=== PATIENT | female | born 1985 | race Caucasian/White ===

== ENCOUNTER 2021-02-27 20:22 | Emergency (ER) | payer BC, SELFPAY ==
[2021-02-27] VITALS (11 sets, daily range): BP systolic 99–114; BP diastolic 59–80; PULSE 77–115; RESP 13–20; TEMP 35.8; O2SAT 100
[2021-02-27] MEDS: SODIUM CHLORIDE 0.9% IV 1,000 ML 999 ML IV CONT (20:44)
[2021-02-27] MEDS: PROCHLORPERAZINE EDISYLATE 10 MG/2 ML VIAL IV PUSH (20:45)
[2021-02-27 20:55] LABS: Basophils Absolute Auto 0.1 K/mm3 (0.0-0.1); Basophils Percent Auto 0.6 % (0.2-1.2); Eosinophils Absolute Auto 0.1 K/mm3 (0-0.3); Eosinophils Percent Auto 0.9 % (0-4.4); Hematocrit 42.1 % (37.0-47.0); Hemoglobin 13.7 g/dL (12.0-15.0); Immature Granulocyte Absolute 0.03 K/mm3 (0.00-0.031); Immature Granulocyte Percent A 0.3 % (0-0.5); Lymphocytes Absolute Auto 3.59 K/mm3 (0.9-3.2); Lymphocytes Percent Auto 39.7 % (18.3-44.2); Mean Corpuscular HGB Conc 32.5 g/dl (32-36); Mean Corpuscular Hemoglobin 25.4 pg (26-34); Mean Corpuscular Volume 78.1 fl (80-100); Mean Platelet Volume 10.6 fl (7.4-10.4); Monocytes Absolute Auto 0.6 K/mm3 (0.1-0.6); Monocytes Percent Auto 7.1 % (2.6-8.5); Neutrophils Absolute Auto 4.7 K/mm3 (1.3-6.7); Neutrophils Percent Auto 51.4 % (45.5-73.1); Platelet Count Result 181 k/mm3 (150-375); Red Blood Count 5.39 M/mm3 (4.2-5.4); Red Cell Distribution Width 12.6 % (11.5-14.5); White Blood Count 9.1 K/mm3 (4.5-10.0)
--- NOTE | 2021-02-27 21:00 | PC.NURSE ---
Patient rolling in bed, patients calls this nurse into room, states that she has anxiety and is becoming anxious. Patient reassured and updated on situation. ERP notified. Awaiting orders.
[2021-02-27 21:04] LABS: Ethanol 264 mg/dL (<10)
[2021-02-27 21:05] LABS: Alanine Aminotransferase 43 U/L (4-35); Albumin Level 4.4 g/dL (3.5-5.1); Alkaline Phosphatase 56 U/L (38-126); Anion Gap 13 mmol/L (8-16); Aspartate Amino Transferase 35 U/L (14-36); Bilirubin,Total 0.4 mg/dL (0.2-1.3); Blood Urea Nitrogen 13 mg/dL (7-17); Calcium 8.5 mg/dL (8.4-10.2); Carbon Dioxide 23 mmol/L (22-30); Chloride 109 mmol/L (98-107); Estimated Glomerular Filt Rate > 60; Glucose 115 mg/dL (65-110); Potassium 3.4 mmol/L (3.4-5.0); Sodium 145 mmol/L (137-145)
[2021-02-27 21:34] LABS: Add Urine Microscopic? YES; Appearance Urine Clear (Clear); Bilirubin Urine Negative (Negative); Blood Urine 1+ (Negative); Color Urine Straw (Yellow); Glucose Urine UA Negative (Negative); Ketones Urine Negative (Negative); Leukocyte Esterase Ur Negative LEU/UL (Negative); Nitrate Urine Negative (Negative); Protein Urine Negative (Negative); RBC Urine 0-2 /hpf (0-2); Specific Grav Ur 1.006 (1.001-1.035); Squamous Epithelial Cell Urine Rare /hpf (Few); Urobilinogen Urine Negative mg/dL (<2.0); WBC Urine 0-3 /hpf
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
--- NOTE | 2021-02-27 23:30 | PC.NURSE ---
Patient given ice chips upon request. Patient awake on stretcher, conversing with and this RN. Patient denies any pain.
--- NOTE | 2021-02-28 01:04 | PC.NURSE ---
Patient ambulates to the bathroom with a steady gait with her by her side. Patient states she is feeling better. ERP notified.
[2021-02-28 01:12] VITALS: BP 115/81; PULSE 99; RESP 20; TEMP 36.6; O2SAT 97
== END 2021-02-28 01:16 | disposition home or self-care (01) ==
PROVIDERS: Emergency Provider Emergency Medicine; PCP Nurse Practitioner Family
DX: F10.920 Alcohol use, unspecified with intoxication, uncomplicated (principal); Y90.8 Blood alcohol level of 240 mg/100 ml or more
CPT/HCPCS: 36415; 80053; 80307; 81001; 81025; 85025; 96361; 96374; 99284; J0780; J7030

== ENCOUNTER 2021-07-13 17:43 | Emergency (ER) | payer BC, SELFPAY ==
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
[2021-07-13 17:57] VITALS: BP 107/73; PULSE 69; RESP 16; TEMP 36.6; O2SAT 100
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
== END 2021-07-13 18:59 | disposition home or self-care (01) ==
PROVIDERS: Emergency Provider Registered Nurse; PCP Nurse Practitioner Family
DX: S60.221A Contusion of right hand, initial encounter (principal); W20.8XXA Other cause of strike by thrown, projected or falling object, initial encounter
CPT/HCPCS: 73130; 99213; G0463

== ENCOUNTER 2021-12-21 08:33 | Emergency (ER) | payer BC, SELFPAY ==
--- NOTE | ~2021-12-21 | XR_ITS ---
EXAMINATION: XR pelvis 1-2V, XR sacrum coccyx min 2V DATE: 12/21/2021 09:21 INDICATION: Right hip dysplasia. Posterior fall with tailbone pain. TECHNIQUE: Line 1. An anteroposterior view of the pelvis was obtained. 2. AP, caudal cranial angled AP and lateral views of the sacrum and coccyx were obtained. COMPARISON: None. FINDINGS: Minimal to mild developmental hip dysplasia with borderline increased [place] angle of 13 degrees on t he right and mildly increased angle of 16 degrees on the left. Alignment is otherwise normal. Sacral arches are intact. No fracture. Bilateral hip joint spaces are normal. Mild bilateral sacroiliac oste oarthritis. IMPRESSION: 1. No acute osseous abnormality. Reviewed, dictated and finalized at location B. IMPRESSION: 1. No acute osseous abnormality.
[2021-12-21 08:44] VITALS: BP 115/65; PULSE 70; RESP 18; TEMP 36.8; O2SAT 100
--- NOTE | 2021-12-21 09:09 | ED.BACK ---
HPI - Back Pain/Injury General Chief Complaint: Back Pain/Injury Stated Complaint: possible tailbone injury Time Seen by Provider: 12/21/21 09:05 Source: patient, RN notes reviewed and old records reviewed Mode of arrival: ambulatory Limitations: no limitations History of Present Illness HPI Narrative: 36-year-old female who presents to [facility] care with complaints of falling down steps this morning about 7-8 steps. At this time her tailbone area is painful, reports that it hurts to bend over, sit, and move very much. Patient also has history of right hip dysplasia and she is having pain down her right leg. Patient reports that she has taken some Tylenol for her discomfort with minimal pain decrease. . MD elicited complaint: back pain Pertinent past history: other (right hip dysplasia) Pain scale (0-10): 7 Treatments prior to arrival: acetaminophen Related Data Home Medications Medication Instructions Recorded Confirmed ergocalciferol (vitamin D2) 62.5 5,000 mcg PO DAILY 07/13/21 12/21/21 mcg (2,500 unit) capsule cetirizine 10 mg tablet (Zyrtec) 10 mg PO DAILY 12/21/21 12/21/21 montelukast 10 mg tablet 10 mg PO DAILY 12/21/21 12/21/21 Allergies Allergy/AdvReac Type Severity Reaction Status Date / Time aspirin Allergy Unknown Other Verified 12/21/21 09:05 Penicillins Allergy Unknown Other Verified 12/21/21 09:05 Sulfa (Sulfonamide Allergy Unknown Other Verified 12/21/21 09:05 Antibiotics) sulfamethoxazole Allergy Unknown Other Verified 12/21/21 09:05 trimethoprim Allergy Unknown Other Verified 12/21/21 09:05 milk Allergy Other Verified 12/21/21 09:05 PEANUTS Allergy Other Uncoded 12/21/21 09:05 Review of Systems Review of Systems: CONSTITUTIONAL: Denies fever, chills, or sweats. CARDIOVASCULAR: Denies chest pain, palpitations, or edema. RESPIRATORY: Denies cough or dyspnea. GASTROINTESTINAL: Denies abdominal pain, nausea, vomiting, or diarrhea. GENITOURINARY: Denies dysuria or hematuria. SKIN: Denies rash or itching. MUSCULOSKELETAL: Reports back pain in coccyx region. Joint pain right hip with radiation of discomfort down right leg.. NEUROLOGIC: Denies headache, numbness, or weakness. All systems reviewed & are unremarkable except as noted in HPI and below PMFSH Past Medical History Medical History (Updated 12/22/21 @ 00:00 by Fabiana Singh) Acquired dysplasia of right hip Asthma Pneumonia Surgical History Surgical History (Updated 12/24/21 @ 08:21 by Mary Banks NP) History of ear surgery right ear hearing loss Social History Social History (Updated 07/14/21 @ 21:06 by Mary Banks NP) Smoking status: Never smoker Gender identity (if verbalized by the patient): Female Comments At time of signature, agree with nursing past medical, surgical, social and family history. There is no relevant family history pertinent to the presenting complaint Exam Narrative: GENERAL: Well-appearing, well-nourished, and in no acute distress. HEAD: Normocephalic, atraumatic. EYES: PERRLA and EOMI. NECK: Supple. No lymphadenopathy. CHEST: Clear to auscultation. No respiratory distress. HEART: Regular rate and rhythm. Distal pulses palpable and equal, cap refill <3 seconds ABDOMEN: Soft, nontender, nondistended, normal active bowel sounds, no palpable or pulsatile masses. No CVA tenderness MUSCULOSKELETAL: Normal range of motion and strength in all extremities; 5/5 strength with hip flexion and extension, dorsiflexion and extension, knee flexion and extension, plantar flexion and extension. Normal sensation in dermatomal distributions with sensitivity to light touch and pain. No midline back tenderness to palpation. No paraspinal tenderness. Transfers from lying to sitting to standing.pain to coccyx region on palpation, some pain down right leg also since fall has history of right hip dysplasia. SKIN: Warm, dry, no rash. No ecchymosis, erythema, open wounds to back. NE
== END 2021-12-21 09:55 | disposition home or self-care (01) ==
PROVIDERS: Emergency Provider Registered Nurse; PCP Nurse Practitioner Family
DX: M53.3 Sacrococcygeal disorders, not elsewhere classified (principal); J45.909 Unspecified asthma, uncomplicated
CPT/HCPCS: 72170; 72220; 99213; G0463

== ENCOUNTER 2023-07-20 17:53 | Emergency (ER) | payer BC, SELFPAY ==
[2023-07-20 17:59] VITALS: BP 118/74; PULSE 65; RESP 18; TEMP 36.9; O2SAT 100
--- NOTE | 2023-07-20 19:12 | ED.WOUNDLAC ---
HPI - Wound/Laceration General Chief Complaint: Wound/Laceration Stated Complaint: left hand finger lac Time Seen by Provider: 07/20/23 18:22 Source: patient, RN notes reviewed and old records reviewed Mode of arrival: ambulatory Limitations: no limitations History of Present Illness HPI narrative: 37 year old female presents to [facility] care with complaints of cutting potatoes and cutting her left middle finger at the end with the slicer. Patient has small flap type of laceration to the tip of finger, no active bleeding noted at this time. Patient reports that area did bleed a lot when it occurred. Patient stats that she believes her tetanus is up to date. Patient had pressure dressing to finger when arrived at clinic. Onset (ago): hour(s) (1700) Extremity Location: Left: hand (distal left middle finger at fat pad) Place: home Patient tetanus UTD: Yes Treatments prior to arrival: other (pressure dressing) Related Data Home Medications Medication Instructions Recorded Confirmed No Home Medications 07/20/23 07/20/23 Allergies Allergy/AdvReac Type Severity Reaction Status Date / Time aspirin Allergy Unknown Other Verified 07/20/23 18:21 Penicillins Allergy Unknown Other Verified 07/20/23 18:21 Sulfa (Sulfonamide Allergy Unknown Other Verified 07/20/23 18:21 Antibiotics) sulfamethoxazole Allergy Unknown Other Verified 07/20/23 18:21 trimethoprim Allergy Unknown Other Verified 07/20/23 18:21 milk Allergy Other Verified 07/20/23 18:21 peanut Allergy Other Verified 07/20/23 18:21 Review of Systems Review of Systems: CONSTITUTIONAL: Denies fever, chills, or sweats. CARDIOVASCULAR: Denies chest pain, palpitations, or edema. RESPIRATORY: Denies cough or dyspnea. SKIN: Reports laceration to the end of the left midle finger MUSCULOSKELETAL: Denies musculoskeletal pain NEUROLOGIC: Denies numbness, or weakness. All systems reviewed & are unremarkable except as noted in HPI and below PMFSH Past Medical History Medical History Acquired dysplasia of right hip Asthma Pneumonia Surgical History Surgical History History of ear surgery right ear hearing loss Social History Social History Smoking status: Never smoker Gender identity (if verbalized by the patient): Female Comments At time of signature, agree with nursing past medical, surgical, social and family history. There is no relevant family history pertinent to the presenting complaint Exam Narrative: GENERAL: Well-appearing, well-nourished, and in no acute distress. HEAD: Normocephalic, atraumatic. NECK: Supple.no lymphadenopathy CHEST: Clear to auscultation. No respiratory distress.SAO2 100% on room air HEART: Regular rate and rhythm. No murmur heard. Normal peripheral pulses. EXTREMITIES: Normal range of motion. No edema. SKIN: Warm, dry, no rash. Reports 0.5cm flap type of laceration to distal left middle finger at fat pad, nail bed of finger has brisk capillary refill, no injury to nail, strong left radial pulse with full mobility of all fingers. NEURO: No focal deficits. Alert and oriented x3. Course Course Level of Care: Express Care Visit Vital Signs Vital signs: Vital Signs Temperature 36.9 C 07/20/23 17:59 Pulse Rate 65 07/20/23 17:59 Respiratory Rate 18 07/20/23 17:59 Blood Pressure 118/74 07/20/23 17:59 Pulse Oximetry 100 07/20/23 17:59 Oxygen Delivery Room Air 07/20/23 17:59 Temperature 36.9 C 07/20/23 17:59 Pulse Rate 65 07/20/23 17:59 Respiratory Rate 18 07/20/23 17:59 Blood Pressure 118/74 07/20/23 17:59 Pulse Oximetry 100 07/20/23 17:59 Oxygen Delivery Room Air 07/20/23 17:59 reviewed Procedures Laceration middle finger distal fat pad: Date: 07/20/23 Time: 18:45 Site: other (distal mi
== END 2023-07-20 19:24 | disposition home or self-care (01) ==
PROVIDERS: Emergency Provider Registered Nurse; PCP Nurse Practitioner Family
DX: S61.213A Laceration without foreign body of left middle finger without damage to nail, initial encounter (principal); W27.4XXA Contact with kitchen utensil, initial encounter; Y93.G9 Activity, other involving cooking and grilling; J45.909 Unspecified asthma, uncomplicated
CPT/HCPCS: 12001; 99212; G0463

== ENCOUNTER 2023-11-24 13:22 | Emergency (ER) | payer BC, SELFPAY ==
[2023-11-24 13:36] VITALS: BP 112/63; PULSE 93; RESP 16; TEMP 36.6; O2SAT 100
--- NOTE | 2023-11-24 13:37 | ED.GENADULT ---
HPI - General Adult General Chief complaint: Urogenital-Female Stated complaint: UTI Time Seen by Provider: 11/24/23 13:37 Source: patient, RN notes reviewed and old records reviewed Mode of arrival: ambulatory Limitations: no limitations History of Present Illness HPI narrative: 38-year-old female to [facility] complaint intermittent lower abdominal cramping and intermittent burning with urination for 1 week. patient states last menstrual period was October 29. Patient reports that she often has these symptoms prior to starting her Menstrual cycle, however they usually do not last this long. Patient has not attempted to treat her symptoms at home. Patient denies urinary frequency, urinary retention, urinary urgency, urinary incontinence, vaginal discharge, risk of STI, GI complaints, pertinent medical history. Patient resting comfortably in exam room in no acute distress. Respirations even and nonlabored. Related Data Home Medications Medication Instructions Recorded Confirmed No Home Medications 07/20/23 07/20/23 Allergies Allergy/AdvReac Type Severity Reaction Status Date / Time aspirin Allergy Unknown Other Verified 11/24/23 13:52 Penicillins Allergy Unknown Other Verified 11/24/23 13:52 Sulfa (Sulfonamide Allergy Unknown Other Verified 11/24/23 13:52 Antibiotics) sulfamethoxazole Allergy Unknown Other Verified 07/20/23 18:21 trimethoprim Allergy Unknown Other Verified 11/24/23 13:52 milk Allergy Other Verified 11/24/23 13:52 peanut Allergy Other Verified 11/24/23 13:52 Review of Systems Review of Systems: All systems reviewed & are unremarkable except as noted in HPI and below Constitutional: Constitutional: Reports no additional constitutional complaints Eyes: Eyes: Reports no additional eye complaints ENT: Reports system reviewed and no additional complaints, except as documented Cardiovascular: Cardiovascular: Reports no additional cardiovascular complaints, Denies chest pain and Denies dyspnea Respiratory: Respiratory: Reports no additional respiratory complaints, Denies cough and Denies dyspnea Gastrointestinal: Gastrointestinal: Reports as per HPI and Reports GI cramping Genitourinary: Genitourinary: Reports as per HPI and Reports dysuria Musculoskeletal: Musculoskeletal: Reports no additional musculoskeletal complaints Neurologic: Reports system reviewed and no additional complaints, except as documented Psychiatric: Psychiatric: Reports no additional psychiatric complaints PMFSH Past Medical History Medical History Acquired dysplasia of right hip Asthma Pneumonia Surgical History Surgical History History of ear surgery right ear hearing loss Social History Social History Smoking status: Never smoker Gender identity (if verbalized by the patient): Female Comments At the time of my signature, I reviewed and agree with the nursing past medical, surgical, social, and family history. There is no relevant family history pertinent to the patient complaint. Exam Const: General: cooperative, healthy appearing, comfortable, no acute distress, alert and well nourished Nutritional Appearance: well nourished Orientation/consciousness: patient oriented x3 Limitations: no limitations HENMT: Head: normal to inspection Ears: external ears normal Face/Nose/Sinus: Normal external nose present, Normal nares present, normal facial exam, No erythema and No edema Face and sinus: normal facial exam, no erythema and no edema Mouth: Yes Normal oral and palatal mucosa present Eyes: General: appearance normal, both eyes and all related structures Neck: Neck: normal visual inspection, full ROM and no meningeal signs Lymphatic: no lymphadenopathy noted and no lymphedema noted Chest: Chest palpation & in
[2023-11-24 13:47] LABS: EDUAAPPEAR Clear; EDUABILI Negative (Negative); EDUABLOOD 1+ (Negative); EDUACOLOR1 Yellow; EDUAGLUCOSE Negative (Negative); EDUAKETONE Negative (Negative); EDUALEUKO Negative (Negative); EDUANITRATE Negative (Negative); EDUAPH 5.5; EDUAPROTEIN Negative (Negative); EDUAUROBILI 0.2
== END 2023-11-24 14:51 | disposition home or self-care (01) ==
PROVIDERS: Emergency Provider Nurse Practitioner Family; PCP Nurse Practitioner Family
DX: R10.30 Lower abdominal pain, unspecified (principal); J45.909 Unspecified asthma, uncomplicated
CPT/HCPCS: 81003; 87086; 99213; G0463